=== PATIENT | male | born 1990 | race Caucasian/White ===

== ENCOUNTER 2021-01-10 01:01 | Emergency (ER) | payer SELFPAY ==
[2021-01-10 01:41] LABS: Protime INR 0.93
[2021-01-10] MEDS ORDERED: MAGNES/ALUMIN/SIMET 30ML UCUP ONE (01:47)
[2021-01-10 01:48] LABS: Absolute Lymphocytes (CBC) 1.3 K/uL (0.7-4.9); Basophils % 0.3 % (0-1.3); Hematocrit 48.8 % (39.6-49.0); Lymphocytes % 20.1 % (15.3-44.8); MPV 10.1 fL (7.6-11.3); RBC Red Blood Cell Count 5.33 M/uL (4.33-5.43)
[2021-01-10] MEDS ORDERED: LIDOCAINE VISCOUS 2% SOLN 15 ML UDC ONE (01:48)
[2021-01-10 02:02] LABS: ALT/SGPT 48 U/L (12-78); AST/SGOT 22 U/L (15-37); Albumin 4.1 g/dL (3.4-5.0); Alkaline Phosphatase 67 U/L (45-117); BUN Blood Urea Nitrogen 11 mg/dL (7-18); Bicarbonate 27 mmol/L (21-32); Bilirubin Direct 0.1 mg/dL (0-0.2); Bilirubin Total 0.4 mg/dL (0.2-1.0); Glucose Level 109 mg/dL (74-106); Lipase 130 U/L (73-393); Magnesium 2.4 mg/dL (1.8-2.4); NT PRO-BNP 16 pg/mL (<125); Potassium 3.7 mmol/L (3.5-5.1); Protein, Total 7.4 g/dL (6.4-8.2); Sodium Level 140 mmol/L (136-145); Troponin (Emerg Dept Use Only) < 0.02 ng/mL (0.0-0.045)
[2021-01-10 02:08] LABS: Urine Blood NEGATIVE (NEG); Urine Glucose NEGATIVE (NEG); Urine Protein TRACE (NEG); Urine Specific Gravity >1.030 (1.005-1.030)
[2021-01-10] MEDS ORDERED: NA CHLORIDE 0.9% 1,000 ML ONE (02:15)
[2021-01-10] MEDS ORDERED: FAMOTIDINE 20 MG/2 ML VIAL IV ONE (02:16)
--- NOTE | 2021-01-10 02:45 | ER ---
Nurse's Notes [facility] Name: Kevan Ramires Age: 30 yrs Sex: Male : 1990 Arrival Date: 01/10/2021 Time: 01:01 Bed 2 Private MD: Diagnosis: Upper abdominal pain, unspecified;Gastritis, unspecified;Dehydration Presentation: 01/10 01:10 Chief complaint: Patient states: C/O epigastric and chest pain that started around wh 2100. Pt stated on a diet and had a big meal tonight. Coronavirus screen: Client denies travel out of the [place] in the last 14 days. At this time, the client does not indicate any symptoms associated with coronavirus-19. Ebola Screen: Patient negative for fever greater than or equal to 101.5 degrees Fahrenheit, and additional compatible Ebola Virus Disease symptoms Patient denies exposure to infectious person. Initial Sepsis Screen: Does the patient meet any 2 criteria? No. Patient's initial sepsis screen is negative. Does the patient have a suspected source of infection? No. Patient's initial sepsis screen is negative. Risk Assessment: Do you want to hurt yourself or someone else? Patient reports no desire to harm self or others. Onset of symptoms was January 10, 2021. 01:10 Method Of Arrival: Ambulatory 01:10 Acuity: JULIO CESAR 3 Historical: - Allergies: 01:45 No Known Allergies; - Home Meds: 01:45 None [Active]; - PMHx: 01:45 None; - PSHx: 01:45 None; - Immunization history:: Adult Immunizations not up to date. - Social history:: Smoking status: Patient/guardian denies using. Screenin:10 Abuse screen: Denies threats or abuse. Denies injuries from another. Nutritional screening: No deficits noted. Tuberculosis screening: No symptoms or risk factors identified. Fall Risk None identified. Assessment: 01:15 General: Appears in no apparent distress. Behavior is calm, cooperative, appropriate for age. Pain: Complains of pain in mid chest and epigastric pain Quality of pain is described as burning, Pain began 4 hours ago. Neuro: Level of Consciousness is awake, alert, obeys commands, Oriented to person, place, time, situation, Appropriate for age. Cardiovascular: Heart tones S1 S2 Rhythm is sinus rhythm. Respiratory: Airway is patent Respiratory effort is even, unlabored, Respiratory pattern is regular, symmetrical, Breath sounds are clear bilaterally. GI: Abdomen is flat, non-distended. : No signs and/or symptoms were reported regarding the genitourinary system. EENT: No signs and/or symptoms were reported regarding the EENT system. Derm: Skin is intact, is healthy with good turgor, Skin is pink, warm \T\ dry. normal. Musculoskeletal: Circulation, motion, and sensation intact. 02:45 Reassessment: Patient appears in no apparent distress at this time. Patient and/or family updated on plan of care and expected duration. Pain level reassessed. Patient is alert, oriented x 3, equal unlabored respirations, skin warm/dry/pink. Patient states symptoms have improved. Vital Signs: 01:10 BP 157 / 89; Pulse 86; Resp 18; Temp 98.2; Pulse Ox 99% ; Weight 106.59 kg; Height 5 wh ft. 9 in. (175.26 cm); Pain 3/10; 02:30 BP 146 / 84; Pulse 77; Resp 18; Pulse Ox 99% on R/A; wh 01:10 Body Mass Index 34.70 (106.59 kg, 175.26 cm) ED Course: 01:01 Patient arrived in ED. cl3 01:10 Arm band placed on right wrist. wh 01:10 Patient has correct armband on for positive identification. Bed in low position. Call light in reach. Side rails up X 1. secured entrance monitor on. Pulse ox on. NIBP on. 01:10 Patient maintains SpO2 saturation greater than 95% on room air. 01:17 Haim Sun MD is Attending Physician. [facility] 01:30 Inserted saline lock: 20 gauge in right antecubital area, using aseptic technique. Blood collected. 01:32 Zeke Campbell, ESTUARDO is Primary Nurse. 01:33 Triage completed. 01:57 XRAY Chest (1 view) In Process Unspecified. EDMS 02:54 No provider procedures requiring assistance completed. IV discontinued, intact, bleeding controlled, No redness/swelling at site. Administered Medications: 01:29 Drug: GI Cocktail without - (Maalox Suspension 30 ml, Lidocaine Liquid 2 % 15 mg2 ml) Route: PO; 02:46 Follow up: Response: No adverse reaction mg2 01:56 Drug: Pepcid 20 mg Route: IVP; Site: right antecubital; mg2 02:46 Follow up: Response: No adverse reaction; Marked relief of symptoms mg2 01:56 Drug: NS 0.9% 1000 ml Route: IV; Rate: 1000 ml; Site: right antecubital; mg2 02:47 Follow up: Response: No adverse reaction; IV Status: Completed infusion; IV Intake: mg2 1000ml Intake: 02:47 IV: 1000ml; Total: 1000ml. mg2 Outcome: 02:44 Discharge ordered by . chinyere 02:54 Discharged to home ambulatory. 02:54 Condition: stable 02:54 Discharge instructions given to patient, Instructed on discharge instructions, follow up and referral plans. medication usage, POC Demonstrated understanding of instructions, follow-up care, medications, POC Prescriptions given X 1. 02:54 Patient left the ED. Signatures: Dispatcher [employer] EDZeke Parada RN RN Armani Curran RN RN [facility] Magen Contreras Maurice, MD MD [facility]
--- NOTE | 2021-01-10 02:45 | EDPHYS ---
Physician Documentation [facility] Name: Kevan Ramires Age: 30 yrs Sex: Male : 1990 Arrival Date: 01/10/2021 Time: : Bed 2 Private MD: ED Physician Haim Sun HPI: 01/10 01:46 This 30 yrs old Male presents to ER via Ambulatory with complaints of Chest mh7 Pain. 01:46 The patient presents with abdominal pain in the epigastric area. Onset: The mh7 symptoms/episode began/occurred last night, at 21:30. The symptoms do not radiate. 01:46 Associated signs and symptoms: Pertinent negatives: nausea, vomiting, and diarrhea, mh7 nausea and vomiting, anorexia, blood in stools, chest pain, constipation, diarrhea, dysuria, fever, headache, hematuria, nausea, palpitations, shortness of breath, testicular pain, vomiting, vomiting blood. The symptoms are described as burning, intermittent. Modifying factors: The symptoms are alleviated by nothing, the symptoms are aggravated by nothing. Severity of pain: At its worst the pain was moderate last night, in the emergency department the pain has improved moderately. States that he ate a large meal \T\1929 then started having upper abdominal pain \T\2129 that was a burning sensation.. Historical: - Allergies: 01:45 No Known Allergies; - Home Meds: 01:45 None [Active]; - PMHx: 01:45 None; - PSHx: 01:45 None; - Immunization history:: Adult Immunizations not up to date. - Social history:: Smoking status: Patient/guardian denies using. ROS: 01:46 Constitutional: Negative for fever, chills, and weight loss, Eyes: Negative for injury, mh7 pain, redness, and discharge, ENT: Negative for injury, pain, and discharge, Neck: Negative for injury, pain, and swelling, Cardiovascular: Negative for chest pain, palpitations, and edema, Respiratory: Negative for shortness of breath, cough, wheezing, and pleuritic chest pain, Back: Negative for injury and pain, : Negative for injury, bleeding, discharge, and swelling, MS/Extremity: Negative for injury and deformity, Skin: Negative for injury, rash, and discoloration, Neuro: Negative for headache, weakness, numbness, tingling, and seizure, Psych: Negative for depression, anxiety, suicide ideation, homicidal ideation, and hallucinations, Allergy/Immunology: Negative for hives, rash, and allergies, Endocrine: Negative for neck swelling, polydipsia, polyuria, polyphagia, and marked weight changes, Hematologic/Lymphatic: Negative for swollen nodes, abnormal bleeding, and unusual bruising. Exam: 01:46 Constitutional: This is a well developed, well nourished patient who is awake, alert, mh7 and in no acute distress. Head/Face: Normocephalic, atraumatic. Eyes: Pupils equal round and reactive to light, extra-ocular motions intact. Lids and lashes normal. Conjunctiva and sclera are non-icteric and not injected. Cornea within normal limits. Periorbital areas with no swelling, redness, or edema. Neck: Trachea midline, no thyromegaly or masses palpated, and no cervical lymphadenopathy. Supple, full range of motion without nuchal rigidity, or vertebral point tenderness. No Meningismus. Chest/axilla: Normal chest wall appearance and motion. Nontender with no deformity. No lesions are appreciated. Cardiovascular: Regular rate and rhythm with a normal S1 and S2. No gallops, murmurs, or rubs. Normal PMI, no JVD. No pulse deficits. Respiratory: Lungs have equal breath sounds bilaterally, clear to auscultation and percussion. No rales, rhonchi or wheezes noted. No increased work of breathing, no retractions or nasal flaring. 01:46 Back: No spinal tenderness. No costovertebral tenderness. Full range of motion. Skin: Warm, dry with normal turgor. Normal color with no rashes, no lesions, and no evidence of cellulitis. MS/ Extremity: Pulses equal, no cyanosis. Neurovascular intact. Full, normal range of motion. Neuro: Awake and alert, GCS 15, oriented to person, place, time, and situation. Cranial nerves II-XII grossly intact. Motor strength 5/5 in all extremities. Sensory grossly intact. Cerebellar exam normal. Normal gait. Psych: Awake, alert, with orientation to person, place and time. Behavior, mood, and affect are within normal limits. 01:46 Abdomen/GI: Inspection: abdomen appears normal, Bowel sounds: normal, in all quadrants, Palpation: mild abdominal tenderness, in the epigastric area, mass, is not appreciated, rebound tenderness, is not appreciated, no appreciated organomegaly, Rectal exam: the exam is deferred, because of patient request, Indicators: McBurney's point is not tender, Chirinos's sign is negative, Rovsing's sign is negative, Obturator sign is negative, Psoas sign is negative, Liver: no appreciated palpable abnormalities, Hernia: not appreciated. Vital Signs: 01:10 BP 157 / 89; Pulse 86; Resp 18; Temp 98.2; Pulse Ox 99% ; Weight 106.59 kg; Height 5 wh ft. 9 in. (175.26 cm); Pain 3/10; 02:30 BP 146 / 84; Pulse 77; Resp 18; Pulse Ox 99% on R/A; wh 01:10 Body Mass Index 34.70 (106.59 kg, 175.26 cm) wh MDM: 02:42 Differential diagnosis: gastritis, gastroesophageal reflux disease, pancreatitis, mh7 Peptic Ulcer Disease. Data reviewed: vital signs, nurses notes, lab test result(s), amylase and lipase, cardiac enzymes, CBC, electrolytes, urinalysis, urine drug screen, EKG, radiologic studies, plain films. Data interpreted: Pulse oximetry: on room air is 99 %. Interpretation: normal. Counseling: I had a detailed discussion with the patient and/or guardian regarding: the historical points, exam findings, and any diagnostic results supporting the discharge/admit diagnosis, the presence of at least one elevated blood pressure reading (>120/80) during this emergency department visit, lab results, radiology results, the need for outpatient follow up, to return to the emergency department if symptoms worsen or persist or if there are any questions or concerns that arise at home. Response to treatment: the patient's symptoms have resolved after treatment, the patient's blood pressure is in an acceptable range, mental status has returned to baseline, the patient no longer shows bradycardia, the patient is not short of breath, the patient is not tachycardic, the patient's pain is gone, the patient's temperature has normalized. 02:44 Patient medically screened. mh7 01/10 01:24 Order name: Basic Metabolic Panel; Complete Time: 02:21 mg2 01/10 01:24 Order name: CBC with Diff; Complete Time: 02:21 mg2 01/10 01:24 Order name: LFT's; Complete Time: 02:21 mg2 01/10 01:24 Order name: Magnesium; Complete Time: 02:21 mg2 01/10 01:24 Order name: NT PRO-BNP; Complete Time: 02:21 mg2 01/10 01:24 Order name: PT-INR; Complete Time: 02:21 mg2 01/10 01:24 Order name: Troponin (emerg Dept Use Only); Complete Time: 02:21 mg2 01/10 01:24 Order name: XRAY Chest (1 view) mg2 01/10 01:36 Order name: Lipase; Complete Time: 02:21 EDMS 01/10 01:50 Order name: Urine Dipstick--Ancillary (enter results); Complete Time: 02:21 mt 01/10 01:13 Order name: EKG - Nurse/Tech; Complete Time: 01:28 mg2 01/10 01:24 Order name: EKG; Complete Time: 01:25 mg2 01/10 01:24 Order name: Cardiac monitoring; Complete Time: 01:28 mg2 01/10 01:24 Order name: IV Saline Lock; Complete Time: 01:28 mg2 01/10 01:24 Order name: Labs collected and sent; Complete Time: 01:28 mg2 01/10 01:24 Order name: O2 Per Protocol; Complete Time: 01: mg2 01/10 01:24 Order name: O2 Sat Monitoring; Complete Time: 01: mg2 01/10 01:28 Order name: Urine Dipstick-Ancillary (obtain specimen); Complete Time: 01:42 mh7 Administered Medications: 01:29 Drug: GI Cocktail without - (Maalox Suspension 30 ml, Lidocaine Liquid 2 % 15 mg2 ml) Route: PO; 02:46 Follow up: Response: No adverse reaction mg2 01:56 Drug: Pepcid 20 mg Route: IVP; Site: right antecubital; mg2 02:46 Follow up: Response: No adverse reaction; Marked relief of symptoms mg2 01:56 Drug: NS 0.9% 1000 ml Route: IV; Rate: 1000 ml; Site: right antecubital; mg2 02:47 Follow up: Response: No adverse reaction; IV Status: Completed infusion; IV Intake: mg2 1000ml Disposition: 01/10/21 02:44 Discharged to Home. Impression: Upper abdominal pain, unspecified, Gastritis, unspecified, Dehydration. - Condition is Stable. - Discharge Instructions: Gastritis, Adult, Ocyf-[id number], Abdominal Pain, Adult, Ojgw-ly-Fogk, Dehydration, Adult, Cdao-[id number]. - Prescriptions for Pepcid 20 mg Oral Tablet - take 1 tablet by ORAL route every 12 hours for 5 days; 10 tablet. - Work release form, Medication Reconciliation Form, Thank You Letter, Antibiotic Education, Prescription Opioid Use form. - Follow up: Private Physician; When: 1 - 2 days; Reason: Worsening of condition, Recheck today's complaints, Continuance of care, Re-evaluation by your physician. - Problem is new. - Symptoms have improved. Signatures: Dispatcher [employer] [facility] Zeke Campbell RN RN Armani Curran RN RN [facility] Haim Sun MD MD mh7 Corrections: (The following items were deleted from the chart) 01:35 01:28 LIPASE+C.LAB.BRZ ordered. [facility] 02:45 02:44 01/10/2021 02:44 Discharged to Home. Impression: Upper abdominal pain, 7 unspecified; Gastritis, unspecified. Condition is Stable. Forms are Medication Reconciliation Form, Thank You Letter, Antibiotic Education, Prescription Opioid Use. Follow up: Private Physician; When: 1 - 2 days; Reason: Worsening of condition, Recheck today's complaints, Continuance of care, Re-evaluation by your physician. Problem is new. Symptoms have improved. 7 02:54 02:45 01/10/2021 02:44 Discharged to Home. Impression: Upper abdominal pain, wh unspecified; Gastritis, unspecified; Dehydration. Condition is Stable. Discharge Instructions: Gastritis, Adult, Boyj-ua-Czcn, Abdominal Pain, Adult, Alrn-vc-Waju. Prescriptions for Pepcid 20 mg Oral Tablet - take 1 tablet by ORAL route every 12 hours for 5 days; 10 tablet. and Forms are Medication Reconciliation Form, Thank You Letter, Antibiotic Education, Prescription Opioid Use. Follow up: Private Physician; When: 1 - 2 days; Reason: Worsening of condition, Recheck today's complaints, Continuance of care, Re-evaluation by your physician. Problem is new. Symptoms have improved. 7
[2021-01-10 06:18] VITALS: TEMP 98.2; O2SAT 99
[2021-01-10 06:20] VITALS: BP 146/84
--- NOTE | 2021-01-10 10:34 | RAD REPORT ---
EXAM DESCRIPTION: RAD - Chest Single View - 01/10/2021 1:57 am CLINICAL HISTORY: CHEST PAIN TECHNIQUE: Single frontal view of the chest is submitted. COMPARISON: None available for comparison FINDINGS: Lungs: No focal consolidation. Pleura: No appreciable effusion. No pneumothorax. Heart: The cardiothoracic silhouette is within normal limits. Mediastinum: Unremarkable Bones: Intact Upper abdomen: Unremarkable IMPRESSION: No acute disease. Electronically signed by: Tadeo Anders MD 01/10/2021 2:10 AM PUBLIC UTILITIES SALES REPRESENTATIVE Due to temporary technical issues with the PACS/Fluency reporting system, reports are being signed by the in house radiologist without review as a courtesy to ensure prompt reporting. The interpreting r adiologist is fully responsible for the content of the report.
--- NOTE | 2021-01-10 17:08 | EKG ---
Test Date: 2021-01-10 Test Time: 01:20:33 Pre K Teacher: MEASUREMENT RESULTS: Intervals: Rate: 79 SC: 156 QRSD: 108 QT: 364 QTc: 417 [place]: P: 68 SC: 156 QRS: 53 T: 64 INTERPRETIVE STATEMENTS: Normal sinus rhythm with sinus arrhythmia Normal ECG No previous ECG available for comparison Electronically Signed On 01-10-21 17:06:08 CHILD CARE COORDINATOR by Prabhakar Pennington
== END 2021-01-10 02:54 | disposition home or self-care (01) ==
LOC: ER 01:01
DX: K29.70 Gastritis, unspecified, without bleeding (principal); E86.0 Dehydration
CPT/HCPCS: 36415; 71045; 80048; 80076; 81003; 83690; 83735; 83880; 84484; 85025; 85610; 93005; 96361; 96374; 99285; J7030